=== PATIENT | female | born 1940 | race Caucasian/White ===

== ENCOUNTER 2022-07-30 06:00 | Outpatient (RCR) | payer MEDICARE, MEDICAID, SELFPAY | END 2022-08-18 23:59 | disposition home or self-care (01) | LOC: MOT 06:00 | PROVIDERS: Visit Provider Physical Medicine & Rehabilitation | DX: I61.9 Nontraumatic intracerebral hemorrhage, unspecified (principal) | CPT/HCPCS: 97110; 97112; 97140; 97166 ==

== ENCOUNTER 2022-07-30 06:00 | Outpatient (RCR) | payer MEDICARE, MEDICAID, SELFPAY | END 2022-08-18 23:59 | disposition home or self-care (01) | LOC: MST 06:00 | PROVIDERS: Visit Provider Physical Medicine & Rehabilitation | DX: I69.122 Dysarthria following nontraumatic intracerebral hemorrhage (principal); I69.191 Dysphagia following nontraumatic intracerebral hemorrhage; I10 Essential (primary) hypertension; I61.9 Nontraumatic intracerebral hemorrhage, unspecified | CPT/HCPCS: 92507; 92523; 92526; 92610; 97110; 97112; 97140; 97166 ==

== ENCOUNTER 2022-07-30 06:00 | Outpatient (RCR) | payer MEDICARE, MEDICAID, SELFPAY | END 2022-08-18 23:59 | disposition home or self-care (01) | LOC: MPT 06:00 | PROVIDERS: Visit Provider Physical Medicine & Rehabilitation | DX: I69.054 Hemiplegia and hemiparesis following nontraumatic subarachnoid hemorrhage affecting left non-dominant side (principal) | CPT/HCPCS: 97110; 97112; 97162; 97530 ==

== ENCOUNTER 2022-08-19 06:00 | Outpatient (RCR) | payer MEDICARE, MEDICAID, SELFPAY | END 2022-09-17 23:59 | disposition home or self-care (01) | LOC: MPT 06:00 | PROVIDERS: Visit Provider Physical Medicine & Rehabilitation | DX: I69.054 Hemiplegia and hemiparesis following nontraumatic subarachnoid hemorrhage affecting left non-dominant side (principal) | CPT/HCPCS: 97110; 97116; 97530 ==

== ENCOUNTER 2022-08-19 06:00 | Outpatient (RCR) | payer MEDICARE, MEDICAID, SELFPAY | END 2022-09-17 23:59 | disposition home or self-care (01) | LOC: MOT 06:00 | PROVIDERS: Visit Provider Physical Medicine & Rehabilitation | DX: I61.9 Nontraumatic intracerebral hemorrhage, unspecified (principal) | CPT/HCPCS: 97110; 97112; 97535 ==